=== PATIENT | female | born 1975 | race Two or more races ===

== ENCOUNTER → 2019-03-13 | Outpatient (CLI) | payer OTHER ==
[~2019-03-13] MED LIST: CONTRAST GIVEN. MC PRN; IOHEXOL 240 MG/ML 50ML VIAL. PO ONE; IOHEXOL 300 MG/ML 100ML VIAL. IV ONE
--- NOTE | 2019-03-13 12:38 | RAD ---
PQRS Compliance Statement: One or more of the following individualized dose reduction techniques were utilized for this examination: 1. Automated exposure control 2. Adjustment of the mA and/or kV according to patient size 3. Use of iterative reconstruction technique CT ABDOMEN WO/W CONTRAST Clinical Indication: Right upper quadrant pain with heterogeneity of liver on ultrasound. Comparison: None. TECHNIQUE: Helical CT imaging of the abdomen is performed after oral contrast and before and after 75 cc Omnipaque 300 IV contrast. Postcontrast imaging occurred during arterial, portal venous, and delayed phases. Findings: Punctate probable calcified granuloma in the right middle lobe. Lung bases otherwise clear. Median sternotomy wires. Cardiac size normal. There is a mass in segment 8 of the liver measuring 4.7 x 5.3 x 3.8 cm. The mass is essentially isodense on precontrast images and demonstrates arterial phase hyperenhancement. There is a thin central nonenhancing scar, well seen on coronal image 52 of series 10. The mass is isodense on the portal venous and delayed phase images. Liver is otherwise homogeneous. Gallbladder, spleen, pancreas, adrenal glands, abdominal aorta, and kidneys are normal. Incidental retroaortic left renal vein. Stomach unremarkable. No dilated small bowel. Oral contrast reaches the colon. The appendix is normal. No colon wall thickening. Moderate stool in the visualized colon. No abdominal adenopathy or free fluid. Vacuum disc phenomenon and disc space narrowing of L5/S1. IMPRESSION: Lobular mass in segment 8 of the liver demonstrates homogeneous arterial phase hyperenhancement with a thin nonenhancing scar. The mass is essentially isodense on the precontrast, portal venous, and delayed phases. The mass contains no internal fat or calcifications. Primary consideration is focal nodular hyperplasia. Other etiologies such as a flash filling hemangioma are less likely. If mass is well seen with ultrasound recommend six-month follow-up. Alternatively MR abdomen with and without Eovist IV contrast could be performed for more definitive diagnosis. Electronically signed by: Chuck Artis MD (03/13/2019 12:35 PM) [id number]
== END | disposition home or self-care (01) ==
LOC: CT 09:53
PROVIDERS: ATTEND Physician Assistant Medical
DX: R16.0 Hepatomegaly, not elsewhere classified (principal); M48.07 Spinal stenosis, lumbosacral region
CPT/HCPCS: 74170; Q9966; Q9967